=== PATIENT | female | born 1985 | race Caucasian/White ===

== ENCOUNTER 2024-01-26 11:40 | Emergency (ER) | payer OTHER, SELFPAY ==
[2024-01-26 11:43] VITALS: BP 176/108
[2024-01-26 11:56] VITALS: BP 138/91
[2024-01-26 12:00] VITALS: BMI 25.9
[2024-01-26 12:01] VITALS: BP 163/106
--- NOTE | 2024-01-26 12:10 | ED.GENMED ---
History of Present Illness
General
Chief Complaint: Abdominal Pain
Source: patient
Time Seen by Provider: 01/26/24 11:56
History of Present Illness
History of Present Illness:
38yoF with no significant past medical history presenting for evaluation of abdominal pain x 2 days. She reports a heavy full sensation throughout her lower abdomen. She states it feels like a balloon is in there. She initially thought her pain
may be related to ovulation as she is in the middle of her cycle although her ovulation pain has never lasted this long. She also reports increased gas and had some loose bowel movements yesterday. Additionally, she is experiencing urinary
frequency. She had a temperature of 100.2 yesterday. She has tried ibuprofen without relief. She denies any dysuria, vaginal bleeding, vaginal discharge, vomiting. Previous abdominal surgeries include an appendectomy and two sections.
Past History
Past History
ED Past Medical History: None
ED Past Surgical History: None
Social History
Tobacco: Non-smoker
Drug: None
Personal:
Living: with family
Phy Exam
General Physical Exam
General Presentation: well appearing and no apparent distress
General age: appears stated age
General Skin: warm and dry
General Habitus: normal
General Mental: alert
Cardiovascular Exam
Cardiovascular Exam: regular rate/rhythm
Pulmonary Exam
Pulmonary Exam: no respiratory distress
Gastrointestinal Exam
Gastrointestinal Exam: soft, non distended and tender (+Tenderness to RLQ and suprapubic region. No guarding or rebound noted.)
[place] Coma Scale
Eye Opening: Spontaneous
Verbal Response: Oriented
Motor Response: Obeys Commands
GCS Total Score: 15
Skin Exam
Skin Exam: normal color and warm/dry
Psychiatric Exam
Psychiatric Exam: normal mood/affect
Course
Orders/Labs/Results
Orders:
Orders
01/26/24 12:01
Urinalysis Reflex To Culture Urgent
Date Specimen was Collected: 01/26/24
Time Specimen was Collected: 11:58
Urine Microscopic Reflex Cult Urgent
01/26/24 12:07
CT Abd/pelvis W Iv Cont Urgent
Comment:
Reason For Exam: Lower abd pain
0.9% Sodium Chloride 1000 ml [Nss] 1,000 ml IV BOLUS
Ketorolac [Toradol] 15 mg IV NOW STA
Morphine Sulfate 4 mg IV NOW STA
Test Result ONCE
01/26/24 12:28
Basic Metabolic Panel Urgent
Complete Blood Count/With Diff Urgent
01/26/24 13:04
Comprehensive Metabolic Panel Urgent
HCG, Serum Qualitative Screen Urgent
01/26/24 15:29
Amoxicillin 875 mg/Clav 125 mg [Augmentin 875 mg/125 mg] 1 tablet PO NOW STA
Abnormal Lab Results
01/26/24 01/26/24 01/26/24
12:01 12:28 13:04
WBC 17.4 H 10^3/uL
(4.8-10.8)
MPV 10.5 H fL
(7.4-10.4)
Abs Immat Gran (auto) 0.1 H 10^3/uL
(0-0.05)
Absolute Neuts (auto) 14.0 H 10^3/uL
(1.4-6.5)
Absolute Monos (auto) 1.5 H 10^3/uL
(0.1-0.6)
Neutrophils % 80.4 H %
(42.2-75.2)
Lymphocytes % 10.1 L %
(20.5-51.1)
Carbon Dioxide 20 L mmol/L 21 L mmol/L
(22-30) (22-30)
Glucose 106 H mg/dl 101 H mg/dl
(70-99) (70-99)
Urine Ketones 1+ A
(Negative)
Ur Occult Blood Reflex 2+ A
(Negative)
Leukocyte Esterase Rfl Trace A
(Negative)
Urine RBC 7-10 A /HPF
(0-2)
Urine Bacteria (Reflex) Few A
(Negative)
01/26/24 12:28
01/26/24 13:04
Vital Signs
Initial and Last Documented VS:
Initial Vital Signs
Temp Pulse Resp BP Pulse Ox
98.0 F 115 18 176/108 98
01/26/24 11:43 01/26/24 11:43 01/26/24 11:43 01/26/24 11:43 01/26/24 11:43
Last Documented Vital Signs
Temp Pulse Resp BP Pulse Ox
98.0 F 104 18 163/106 96
01/26/24 11:43 01/26/24 12:45 01/26/24 12:45 01/26/24 12:01 01/26/24 12:45
MDM/Problems Addressed
Differential Diagnosis Includes:
38yoF here with lower abd pain and pressure x 2 days. Low grade temp of 100.2 yesterday. +Loose stool and urinary frequency. No vaginal complaints. She is afebrile and hemodynamically stable. She is non-toxic appearing. No signs of peritonitis on
abdominal exam. Differential diagnosis includes but is not limited to: diverticulitis, colitis, gastroenteritis, UTI, less likely PID
Initial ED plan: Check abdominal labs, HCG, UA, and CT abdomen. IV Toradol, morphine, and fluid bolus for symptoms.
*Critical Care Note
Total Time (30-74mins, 75-104mins- exclusive of procedures): Not Applicable
Update Note
Update Note:
Labs reveal a leukocytosis with a WBC of 17.4. Remainder of labs unremarkable including normal renal function and LFTs. Microscopic hematuria seen on UA without signs of infection. CT shows moderately to severely inflamed sigmoid colon,
diverticulitis vs. colitis. No perforation or abscess seen. No indication for hospitalization. Will start patient on a course of Augmentin. Advised clear liquid diet until pain improves. Advised f/u with PCP and GI. ED return precautions discussed.
She expressed understanding and is agreeable to plan. Patient discharged in stable condition.
ED Attending Note
-
Portions of this chart may have been created with voice recognition software.� Occasional wrong word or��sound alike� substitutions may have occurred due to the inherent limitations of voice recognition software.
Discharge Plan
Departure
Patient Disposition: Home (Routine Discharge)
Date of Disposition: 01/26/24
Time of Disposition: 15:30
Patient with high blood pressure during this ER visit?: Yes
Discharge Problem:
Acute diverticulitis
Instructions: Diverticulitis (DC)
Prescriptions:
New
amoxicillin-pot clavulanate 875-125 mg tablet
1 tab PO BID 10 Days Qty: 20 0RF
No Action
biotin 1 MG tablet
1 mg PO DAILY
Multi 1 EACH tablet
1 ea PO DAILY
levonorgestrel-ethinyl estrad [Sronyx] 1 EACH tablet
1 tab PO DAILY
acetaminophen 325 MG tablet
650 mg PO Q4HPRN PRN (Reason: mild pain) Qty: 1 0RF
ibuprofen 200 MG tablet
400 - 600 mg PO Q6HPRN PRN (Reason: moderate pain) Qty: 1 0RF
Referrals:
Roly Caicedo MD [Active] -
Maine Wells MD [Family Provider] -
Activity Restrictions/Additional Instructions:
Take antibiotics as prescribed. Eat a clear liquid diet until pain improves.
Please follow-up with your family doctor and gastroenterology. Return to the ER with any worsening symptoms, fevers, or if symptoms do not improve in 72 hours.
Interventions
Interventions:
*Risk Screen - Suicide Last Done: 01/26/24 11:43
*General Assessment Last Done: 01/26/24 11:43
*Neglect/Abuse Screening Last Done: 01/26/24 11:43
ED- Fall Risk Assessment Last Done: 01/26/24 12:00
*ED COVID-19 Vaccine History Last Done: 01/26/24 12:00
MO-Ckzpoo-Fwdpoefxzn Assessment Last Done: 01/26/24 12:00
Discharge Date and Time
Print Language: [place]
[2024-01-26] MEDS: NSS 1000 IV (12:28)
[2024-01-26] MEDS: TORADOL 15 MG IV (12:29)
[2024-01-26 12:30] LABS: Urine Albumin Trace (Neg - Trace); Urine Bilirubin Negative (Negative); Urine Character Clear (Clear); Urine Color Yellow; Urine Glucose Negative (Negative); Urine Ketone 1+ (Negative); Urine Leukocyte Trace (Negative); Urine Nitrite Negative (Negative); Urine Occult Blood 2+ (Negative); Urine Urobilinogen Negative (Neg - 1+)
[2024-01-26] MEDS: MORPHINE SULFATE 4 MG IV (12:30)
[2024-01-26 12:39] LABS: % Basophils 0.2 % (0-2); % Eosinophils 0.2 % (0-6); % Immature Granulocytes 0.5 % (0-0.5); % Lymphocytes 10.1 % (20.5-51.1); % Monocytes 8.6 % (1.7-9.3); % Neutrophils 80.4 % (42.2-75.2); Absolute Immature Granulocytes 0.1 10^3/uL (0-0.05); Absolute Lymphocytes 1.8 10^3/uL (1.2-3.4); Absolute Monocytes 1.5 10^3/uL (0.1-0.6); Hematocrit 38.2 % (37.0-47.0); Hemoglobin 13.1 g/dL (12.0-16.0); Mean Corp Hgb Conc. 34.3 g/dL (33.0-37.0); Mean Corpuscular Hgb 30.3 pg (27.0-31.0); Mean Corpuscular Volume 88.2 fL (81.0-99.0); Mean Platelet Volume 10.5 fL (7.4-10.4); Nucleated Red Blood Cells % 0 %; Platelet Count 258 10^3/uL (130-400); Red Blood Cell Count 4.33 10^6/uL (4.20-5.40); Red Cell Dist. Width 12.9 % (11.5-14.5); White Blood Cell Count 17.4 10^3/uL (4.8-10.8)
[2024-01-26 12:47] LABS: Urine Bacteria Few (Negative); Urine Squamous Cell >30 /LPF (Few)
--- NOTE | 2024-01-26 12:49 | EDRN ---
the pt is resting in stretcher in the lowest position, side rails up x1, HOB elevated, call barajas within reach, VS WNL, no s/s of distress, the pt denies needing anything at this time, the pt is currently still sinus tachycardic, will continue to
monitor the pt closely
[2024-01-26 13:00] VITALS: BP 171/101
[2024-01-26 13:04] LABS: Blood Urea Nitrogen 8 mg/dl (7-17); Calcium 9.4 mg/dl (8.4-10.2); Carbon Dioxide 20 mmol/L (22-30); Chloride 105 mmol/L (98-107); Estimated Creatinine Clearance 105 ml/min; Glucose 106 mg/dl (70-99); Sodium 138 mmol/L (135-145); eGFR > 60.00
[2024-01-26 13:41] LABS: HCG, Serum Qualitative Screen Negative
[2024-01-26 13:44] LABS: ALT (SGPT) 16 U/L (0-35); AST (SGOT) 20 U/L (14-36); Albumin 3.7 g/dl (3.5-5.0); Alkaline Phosphatase 52 U/L (38-126); Blood Urea Nitrogen 8 mg/dl (7-17); Carbon Dioxide 21 mmol/L (22-30); Chloride 106 mmol/L (98-107); Estimated Creatinine Clearance 122 ml/min; Glucose 101 mg/dl (70-99); Potassium 3.7 mmol/L (3.5-5.1); Sodium 137 mmol/L (135-145); Total Bilirubin 0.8 mg/dl (0.2-1.3); Total Protein 6.3 g/dl (6.3-8.2); eGFR > 60.00
[2024-01-26 14:00] VITALS: BP 170/95
[2024-01-26 15:42] VITALS: BP 126/71
[2024-01-26] MEDS: AUGMENTIN 875 MG/125 MG 1 TABLET PO (15:44)
== END 2024-01-26 15:45 | disposition home or self-care (01) ==
LOC: EMR 11:40
PROVIDERS: Physician Assistant; EMERGENCY PHYSICIAN Emergency Medicine; FAMILY PHYSICIAN Internal Medicine
DX: K57.32 Diverticulitis of large intestine without perforation or abscess without bleeding (principal); R31.29 Other microscopic hematuria; R35.0 Frequency of micturition; R03.0 Elevated blood-pressure reading, without diagnosis of hypertension; Z88.1 Allergy status to other antibiotic agents; Z88.8 Allergy status to other drugs, medicaments and biological substances; Z91.048 Other nonmedicinal substance allergy status; Z91.018 Allergy to other foods
CPT/HCPCS: 99285; 96375; 96361; 96374; 74177; 80048; 80053; 81003; 81015; 84703; 85025; Q9967